=== PATIENT | female | born 1965 | race Caucasian/White ===

== ENCOUNTER 2022-07-29 00:18 | Day surgery (SDC) | payer OTHER, SELFPAY ==
[2022-06-29 13:05] VITALS: BMI 34.0
--- NOTE | 2022-07-13 12:51 | PC.NURSE ---
Confirmed new date and time for procedure with patient and no new medications or medical history was reported.
--- NOTE | 2022-07-28 14:35 | PM.HPGS ---
History of Present Illness History of Present Illness Consent: Risks, benefits, and alternatives have been discussed and questions answered. Patient agrees to proceed with procedure. Chief complaint: Neoplasm Screening, Family Hx of Colon polyps Narrative: Cheryl Romero is a 57 year old female Referred for colon cancer screening. She has a family history of polyps. Review of Systems Review of Systems: All systems reviewed & are unremarkable except as noted in HPI and below PMFSH Social History Social History Smoking packs per day: 1 Smoking cigarettes per day: 20.0 Years smoked: 20 Smoking pack-years: 20.00 Smoking status: Former smoker Living arrangements: with family Meds Home Medications and Allergies Home Medications Medication Instructions Recorded Confirmed Type bupropion HCl 300 mg 24 hr tablet, 300 mg PO DAILY 06/29/22 07/29/22 History extended release meloxicam 7.5 mg tablet 7.5 mg PO DAILY 06/29/22 07/29/22 History metoprolol succinate 25 mg 25 mg PO DAILY 06/29/22 07/29/22 History tablet,extended release 24 hr rosuvastatin 20 mg tablet 20 mg PO DAILY 06/29/22 07/29/22 History Allergies Allergy/AdvReac Type Severity Reaction Status Date / Time No Known Allergies Allergy Verified 07/29/22 09:47 Exam Const: General: alert Orientation/consciousness: patient oriented x3 Resp: Auscultation: clear to auscultation bilaterally Cardio: Rhythm: regular rhythm GI: GI Palp: Yes Soft to palpation and No Tenderness to palpation present (GI) Neuro: General: patient oriented x3 Assessment and Plan Assessment and plan (1) Colon cancer screening: Code(s): Z12.11 - Encounter for screening for malignant neoplasm of colon Status: Acute Assessment and Plan: Colonoscopy with possible biopsy or polypectomy or cautery or injection of substances.
--- NOTE | 2022-07-29 09:27 | WPDANESEPPF ---
Anes - Initial Pre Proc Eval Procedure: Operation Date: 07/29/22 10:30 Proposed Procedures p Screening Colonoscopy - Adalberto Unger MD Date/Time: 07/29/22 09:27 Surgeon: Adalberto Unger MD Pre Op Diagnosis: Neoplasm Screening, Family Hx of Colon polyps Patient Data Age: 57 Gender: F Height: 1.75 m Weight: 104.6 kg Allergies Allergy/AdvReac Type Severity Reaction Status Date / Time No Known Allergies Allergy Verified 06/29/22 13:02 Home Medications Medication Instructions Recorded Confirmed Type bupropion HCl 300 mg 24 hr tablet, 300 mg PO DAILY 06/29/22 07/13/22 History extended release meloxicam 7.5 mg tablet 7.5 mg PO DAILY 06/29/22 07/13/22 History metoprolol succinate 25 mg 25 mg PO DAILY 06/29/22 07/13/22 History tablet,extended release 24 hr rosuvastatin 20 mg tablet 20 mg PO DAILY 06/29/22 07/13/22 History Patient hx anesthesia problems: none Family hx anesthesia problems: none Results Review: All pre-operative results and documents have been reviewed as part of the pre-operative evaluation. [facility] Social History Social History Smoking packs per day: 1 Smoking cigarettes per day: 20.0 Years smoked: 20 Smoking pack-years: 20.00 Smoking status: Former smoker Living arrangements: with family Anes - Eval Final PreProcedure Day of Procedure 07/29/22 09:27 Patient weight: obese Heart: regular rate and rhythm Lungs: clear to auscultation and normal air movement Airway: Mallampati scale class II Neurological: alert and oriented Last oral intake: >/= 8 hours ASA classification: III Emergent: no Anesthetic plan: proceed Anesthesia type and monitoring: general GIVS Results Review: All pre-operative results and documents have been reviewed as part of the pre-operative evaluation. Informed Consent: The patient's anesthetic plan and its attendant risks and benefits were discussed with the patient/family/POA. Questions were solicited and answers provided to the satisfaction of the patient/family/POA.
[2022-07-29] MEDS: LACTATED RINGERS 1,000 ML 150 ML IV CONT (09:45)
[2022-07-29 09:48] VITALS: BP 160/85; PULSE 63; RESP 18; TEMP 36.1; O2SAT 97
[2022-07-29 10:43] VITALS: BP 99/65; PULSE 61; RESP 21; TEMP 36.1; O2SAT 97
[2022-07-29 10:53] VITALS: BP 125/66; PULSE 62; RESP 16; TEMP 36.1; O2SAT 99
[2022-07-29 11:03] VITALS: BP 118/74; PULSE 60; RESP 24; TEMP 36.1; O2SAT 100
== END 2022-07-29 11:09 | disposition home or self-care (01) ==
PROVIDERS: PCP Family Medicine; Visit Provider Internal Medicine Gastroenterology
PROC: 0DJD8ZZ Inspection of Lower Intestinal Tract, Via Natural or Artificial Opening Endoscopic (ICD-10-PCS; CPT 45378; principal; 2022-07-29 10:30)
DX: Z12.11 Encounter for screening for malignant neoplasm of colon (principal); Z83.71 Family history of colonic polyps; Z87.891 Personal history of nicotine dependence; E66.9 Obesity, unspecified; Z68.34 Body mass index [BMI] 34.0-34.9, adult
CPT/HCPCS: 45378; J2704; J7120